=== PATIENT | female | born 1980 | race Two or more races ===

== ENCOUNTER 2021-10-20 02:17 | Emergency (ER) | payer MEDICAID, OTHER ==
[~2021-10-20] VITALS: Ht 160 cm; Wt 95.3 kg
[2021-10-20 02:17] VITALS: BP 193/88
== END 2021-10-20 07:47 | disposition left against medical advice (07) ==
LOC: ER 02:17
DX: R50.9 Fever, unspecified (principal); Z53.21 Procedure and treatment not carried out due to patient leaving prior to being seen by health care provider

== ENCOUNTER 2021-11-21 01:57 | Emergency (ER) | payer OTHER ==
[~2021-11-21] VITALS: Ht 157.5 cm; Wt 90.7 kg
[2021-11-21] MEDS ORDERED: MORPHINE SULFATE 4 MG/ML SYR/VIAL IV ONE (03:00)
[2021-11-21 07:36] VITALS: BP 170/86
[2021-11-21] MEDS: LABETALOL HCL 5 MG/ML 4ML SYRINGE IV ONE ×2 (07:43→08:13)
== END 2021-11-21 08:44 | disposition left against medical advice (07) ==
LOC: ER 01:57
DX: I16.0 Hypertensive urgency (principal); I10 Essential (primary) hypertension; F17.210 Nicotine dependence, cigarettes, uncomplicated; M79.18 Myalgia, other site
CPT/HCPCS: 71045; 93005; 96374; 99284; J2270; J3490